=== PATIENT | male | born 1980 | race Caucasian/White ===

== ENCOUNTER 2022-06-09 10:45 | Outpatient (CLI) | payer OTHER ==
--- NOTE | 2022-06-09 12:13 | XRAY Report ---
PROCEDURE: Finger(s) LT INDICATIONS: LEFT MIDDLE FINGER PUNCTURE WOUND TECHNIQUE: AP hand, 3 views of the third finger(s) acquired. COMPARISON: None. FINDINGS: Bones: No fractures or dislocations. No suspicious bony lesions. Soft tissues: No suspicious soft tissue calcifications. IMPRESSION: No acute osseous abnormalities. No radiopaque foreign body. Reviewed by: Lola Amezcua MD on 06/09/2022 12:11 PM PST Approved by: Lola Amezcua MD on 06/09/2022 12:11 PM PST Station ID: [id number]
== END 2022-06-09 10:46 | disposition home or self-care (01) ==
LOC: DI.S 10:45
PROVIDERS: ATTEND Emergency Medicine
DX: S61.233A Puncture wound without foreign body of left middle finger without damage to nail, initial encounter (principal)